=== PATIENT | male | born 1970 | race Caucasian/White ===

== ENCOUNTER 2020-01-11 13:03 | Emergency (ER) | payer OTHER ==
[~2020-01-11] VITALS: Ht 180.3 cm; Wt 109.3 kg
[2020-01-11 13:22] VITALS: Ht 180.3 cm; Wt 109.3 kg
[2020-01-11 14:48] VITALS: BP 123/74
== END 2020-01-11 14:48 | disposition home or self-care (01) ==
LOC: ED 13:03
DX: L03.012 Cellulitis of left finger (principal)
CPT/HCPCS: J0696